=== PATIENT | male | born 1955 | race Caucasian/White ===

== ENCOUNTER 2021-06-12 12:57 | Inpatient (IN) | payer OTHER ==
[2021-06-12] MEDS ORDERED: IBUPROFEN 400 MG TABLET (FP) PO PRN (14:23)
[2021-06-12] MEDS ORDERED: MAG HYDROX/AL HYDROX/SIMETH 30 ML UNIT-DOSE CUP PO PRN (14:23)
[2021-06-12] MEDS ORDERED: ONDANSETRON *ODT* 4 MG TABLET SL PRN (14:23)
[2021-06-12] MEDS ORDERED: NICOTINE 10 MG CARTRIDGE (INHALER) IH PRN (14:23)
[2021-06-12] MEDS ORDERED: methaDONE HCL 10 MG TABLET (FOR DETOX USE ONLY) PO ONE (14:23)
[2021-06-12] MEDS ORDERED: BISMUTH SUBSALICYLATE 262 MG/15 ML BTL PO PRN (14:23)
[2021-06-12] MEDS ORDERED: cloNIDine HCL 0.1 MG TABLET PO PRN (14:23)
[2021-06-12] MEDS ORDERED: MAGNESIUM CITRATE 300 ML BOTTLE PO PRN (14:23)
[2021-06-12] MEDS ORDERED: MENTHOL/PHENOL 1 EACH UD MM PRN (14:23)
[2021-06-12] MEDS ORDERED: NICOTINE POLACRILEX 2 MG GUM BUC PRN (14:23)
[2021-06-12] MEDS ORDERED: MAGNESIUM HYDROX 2400MG/30ML ORAL SUSPENSION 30 ML CUP PO PRN (14:23)
[2021-06-12] MEDS ORDERED: NICOTINE 21 MG/24 HOURS TOPICAL PATCH TD PRN (14:23)
[2021-06-12] MEDS ORDERED: ACETAMINOPHEN 325 MG TABLET (FP) PO PRN ×2 (14:23)
[2021-06-12] MEDS ORDERED: methaDONE HCL 10 MG TABLET (FOR DETOX USE ONLY) ONE (15:17)
[2021-06-12] MEDS ORDERED: METHOCARBAMOL 500 MG TABLET ONE (15:17)
[2021-06-12] MEDS ORDERED: IBUPROFEN 400 MG TABLET (FP) PO ONE (15:18)
[2021-06-12] MEDS: METHOCARBAMOL 500 MG TABLET PO PRN ×2 (15:24→22:19)
[2021-06-12 15:27] VITALS: BMI 22.9
[2021-06-12] MEDS: hydrOXYzine PAMOATE 25 MG CAPSULE (FP) PO SCH ×2 (18:03→22:19)
[2021-06-12] MEDS: PRENATAL VITAMINS W/ FOLIC ACID TABLET (FP) PO SCH (18:03)
[2021-06-12] MEDS: MELATONIN 5 MG TABLETS PO SCH (22:19)
[2021-06-12] MEDS: THIAMINE HCL 100 MG TABLET (FP) PO SCH (22:19)
[2021-06-13] MEDS: hydrOXYzine PAMOATE 25 MG CAPSULE (FP) PO SCH ×5 (06:06→22:26)
[2021-06-13] MEDS ORDERED: methaDONE HCL 10 MG TABLET (FOR DETOX USE ONLY) ONE (08:18)
[2021-06-13] MEDS: PRENATAL VITAMINS W/ FOLIC ACID TABLET (FP) PO SCH (10:22)
[2021-06-13 11:57] LABS: HEMATOCRIT 51.2 % (35.4-49); HEMOGLOBIN 17.3 GM/dL (11.7-16.9); MCH 30.9 pg (25.7-33.7); MCHC 33.8 g/dl (32.0-35.9); MEAN CELL VOLUME 91.5 fl (80-96); MEAN PLT VOLUME 8.7 fl (7.5-11.1); PLATELET COUNT 248 10^3/uL (134-434); RDW 14.1 % (11.9-15.9); WHITE BLOOD COUNT 7.9 K/mm3 (4.0-10.0)
[2021-06-13 12:26] LABS: CALCIUM 8.4 mg/dL (8.5-10.1)
[2021-06-13 12:27] LABS: ALBUMIN 3.1 g/dl (3.4-5.0); BLOOD UREA NITROGEN 12.4 mg/dL (7-18)
[2021-06-13 12:30] LABS: CREATININE 0.8 mg/dL (0.55-1.3)
[2021-06-13 12:32] LABS: BILIRUBIN,TOTAL 1.2 mg/dL (0.2-1); TOT PROT 6.4 g/dl (6.4-8.2)
[2021-06-13] MEDS: THIAMINE HCL 100 MG TABLET (FP) PO SCH (22:26)
[2021-06-13] MEDS: MELATONIN 5 MG TABLETS PO SCH (22:26)
[2021-06-14] MEDS: hydrOXYzine PAMOATE 25 MG CAPSULE (FP) PO SCH ×5 (05:37→22:24)
[2021-06-14] MEDS ORDERED: methaDONE HCL 10 MG TABLET (FOR DETOX USE ONLY) PO ONE (10:00)
[2021-06-14] MEDS: PRENATAL VITAMINS W/ FOLIC ACID TABLET (FP) PO SCH (10:17)
[2021-06-14] MEDS: METHOCARBAMOL 500 MG TABLET PO PRN (13:16)
[2021-06-14] MEDS: MELATONIN 5 MG TABLETS PO SCH (22:24)
[2021-06-14] MEDS: THIAMINE HCL 100 MG TABLET (FP) PO SCH (22:24)
[2021-06-15] MEDS: hydrOXYzine PAMOATE 25 MG CAPSULE (FP) PO SCH (05:25)
[2021-06-15 06:38] VITALS: BP 103/63; PULSE 59; TEMP 98
[2021-06-15] MEDS ORDERED: hydrOXYzine PAMOATE 25 MG CAPSULE (FP) PO PRN (07:22)
[2021-06-16] MEDS ORDERED: methaDONE HCL 10 MG TABLET (FOR DETOX USE ONLY) PO ONE (10:00)
== END 2021-06-15 09:48 | disposition left against medical advice (07) | DRG 770 ==
LOC: YASAS 12:57 → Y3N 15:15
PROVIDERS: ADMIT Allergy & Immunology; ATTEND Allergy & Immunology
PROC: HZ2ZZZZ Detoxification Services for Substance Abuse Treatment (ICD-10-PCS; principal; 2021-06-12)
DX: F11.23 Opioid dependence with withdrawal (principal); F14.10 Cocaine abuse, uncomplicated; F12.10 Cannabis abuse, uncomplicated; F17.210 Nicotine dependence, cigarettes, uncomplicated; G89.29 Other chronic pain
CPT/HCPCS: 36415; 80053; 85027; 86780; C9803; J0735; U0003; U0005

== ENCOUNTER 2022-11-20 17:12 | Inpatient (IN) | payer OTHER ==
[2022-11-20 18:22] VITALS: BMI 21.5
[2022-11-20] MEDS ORDERED: ACETAMINOPHEN 325 MG TABLET (FP) PO PRN (20:21)
[2022-11-20] MEDS ORDERED: LOPERAMIDE HCL 2 MG CAPSULE PO PRN (20:21)
[2022-11-20] MEDS ORDERED: guaiFENesin 600 MG TABLET.ER (FP) PO PRN (20:21)
[2022-11-20] MEDS ORDERED: NICOTINE POLACRILEX 2 MG GUM BUC PRN (20:21)
[2022-11-20] MEDS ORDERED: BISMUTH SUBSALICYLATE 524 MG/30 ML PO PRN (20:21)
[2022-11-20] MEDS ORDERED: MAG HYDROX/AL HYDROX/SIMETH 30 ML UNIT-DOSE CUP PO PRN (20:21)
[2022-11-20] MEDS ORDERED: NALOXONE HCL 0.4 MG/ML VIAL IM PRN (20:21)
[2022-11-20] MEDS ORDERED: MAGNESIUM HYDROX 2400MG/30ML ORAL SUSPENSION 30 ML CUP PO PRN (20:21)
[2022-11-20] MEDS ORDERED: DICYCLOMINE HCL 10 MG CAPSULE PO PRN (20:21)
[2022-11-20] MEDS ORDERED: POLYETHYLENE GLYCOL (HEALTHYLAX) 3350 17 GM PACKET PO PRN (20:21)
[2022-11-20] MEDS ORDERED: NALOXONE HCL (KLOXXADO) 8 MG SPRAY NS PRN (20:21)
[2022-11-20] MEDS ORDERED: BENZOCAINE/MENTHOL (CHLORASEPTIC ) LOZENGE MM PRN (20:21)
[2022-11-20] MEDS ORDERED: IBUPROFEN 600 MG TABLET (FP) PO PRN (20:21)
[2022-11-20] MEDS ORDERED: BENZONATATE 200 MG CAPSULE PO PRN (20:21)
[2022-11-20] MEDS ORDERED: ONDANSETRON *ODT* 4 MG TABLET SL PRN (20:21)
[2022-11-20] MEDS ORDERED: hydrOXYzine PAMOATE 25 MG CAPSULE (FP) PO PRN (20:21)
[2022-11-20] MEDS ORDERED: IBUPROFEN 400 MG TABLET (FP) PO PRN (20:21)
[2022-11-21] MEDS: MELATONIN 5 MG TABLETS PO SCH ×2 (00:07→22:29)
[2022-11-21] MEDS: THIAMINE HCL 100 MG TABLET (FP) PO SCH ×2 (00:07→22:30)
[2022-11-21] MEDS ORDERED: methaDONE HCL 10 MG TABLET PO SCH (07:45)
[2022-11-21] MEDS ORDERED: methaDONE 80 MG, methaDONE 10 MG PO ONE (08:00)
[2022-11-21] MEDS ORDERED: diazePAM 5 MG TABLET PO PRN (10:10)
[2022-11-21] MEDS: PRENATAL VITAMINS W/ FOLIC ACID TABLET (FP) PO SCH (10:24)
[2022-11-21] MEDS: NICOTINE 21 MG/24 HOURS TOPICAL PATCH TD SCH (10:24)
[2022-11-21] MEDS: diazePAM 5 MG TABLET PO SCH ×3 (10:25→22:31)
[2022-11-21 11:09] LABS: HEMATOCRIT 47.3 % (35.4-49); HEMOGLOBIN 16.1 GM/dL (11.7-16.9); MCH 31.7 pg (25.7-33.7); MCHC 34.1 g/dl (32.0-35.9); PLATELET COUNT 203 10^3/uL (134-434); RBC 5.09 M/mm3 (4.00-5.60); WHITE BLOOD COUNT 7.3 K/mm3 (4.0-10.0)
[2022-11-21 11:18] LABS: BLOOD UREA NITROGEN 19.8 mg/dL (7-18)
[2022-11-21 11:19] LABS: BILIRUBIN,TOTAL 0.3 mg/dL (0.2-1); TOT PROT 6.1 g/dl (6.4-8.2)
[2022-11-21 11:20] LABS: CALCIUM 8.7 mg/dL (8.5-10.1)
[2022-11-21 11:21] LABS: CREATININE 0.9 mg/dL (0.55-1.3)
[2022-11-21] MEDS ORDERED: PRAZOSIN HCL 2 MG CAPSULE PO SCH (22:00)
[2022-11-22] MEDS: methaDONE 80 MG, methaDONE 10 MG PO SCH (05:57)
[2022-11-22] MEDS: diazePAM 5 MG TABLET PO SCH ×4 (05:58→22:14)
[2022-11-22] MEDS ORDERED: FLUoxetine HCL 20 MG CAPSULE PO SCH (10:00)
[2022-11-22] MEDS: PRENATAL VITAMINS W/ FOLIC ACID TABLET (FP) PO SCH (10:44)
[2022-11-22] MEDS: NICOTINE 21 MG/24 HOURS TOPICAL PATCH TD SCH (10:45)
[2022-11-22] MEDS: MELATONIN 5 MG TABLETS PO SCH (22:13)
[2022-11-22] MEDS: THIAMINE HCL 100 MG TABLET (FP) PO SCH (22:13)
[2022-11-23] MEDS: methaDONE 80 MG, methaDONE 10 MG PO SCH (05:57)
[2022-11-23] MEDS ORDERED: diazePAM 5 MG TABLET PO SCH (06:00)
[2022-11-23 09:59] VITALS: BP 123/73; PULSE 86; RESP 18; TEMP 98.8
[2022-11-23] MEDS: PRENATAL VITAMINS W/ FOLIC ACID TABLET (FP) PO SCH (10:04)
[2022-11-23] MEDS: NICOTINE 21 MG/24 HOURS TOPICAL PATCH TD SCH (10:04)
[2022-11-24] MEDS ORDERED: diazePAM 5 MG TABLET PO SCH (06:00)
[2022-11-25] MEDS ORDERED: diazePAM 5 MG TABLET PO ONE (06:00)
== END 2022-11-23 10:35 | disposition left against medical advice (07) | DRG 894 ==
LOC: YASAS 17:12 → Y3N 21:17
PROVIDERS: ADMIT Allergy & Immunology; ATTEND Surgery
PROC: HZ2ZZZZ Detoxification Services for Substance Abuse Treatment (ICD-10-PCS; principal; 2022-11-20)
DX: F13.230 Sedative, hypnotic or anxiolytic dependence with withdrawal, uncomplicated (principal); F11.20 Opioid dependence, uncomplicated; F14.20 Cocaine dependence, uncomplicated; F12.20 Cannabis dependence, uncomplicated; F17.210 Nicotine dependence, cigarettes, uncomplicated; F19.24 Other psychoactive substance dependence with psychoactive substance-induced mood disorder; I10 Essential (primary) hypertension; M54.50 Low back pain, unspecified; G89.29 Other chronic pain
CPT/HCPCS: 36415; 80053; 85027; 86780; C9803-CS; U0003; U0005

== ENCOUNTER 2024-05-20 08:50 | Inpatient (IN) | payer OTHER ==
[2024-05-20 09:21] VITALS: BMI 23.3
[2024-05-20] MEDS ORDERED: MAGNESIUM HYDROX 2400MG/30ML ORAL SUSPENSION 30 ML CUP PO PRN (10:05)
[2024-05-20] MEDS ORDERED: NICOTINE POLACRILEX 2 MG LOZENGE BC PRN (10:05)
[2024-05-20] MEDS ORDERED: POLYETHYLENE GLYCOL (HEALTHYLAX) 3350 17 GM PACKET PO PRN (10:05)
[2024-05-20] MEDS ORDERED: guaiFENesin 600 MG TABLET.ER (FP) PO PRN (10:05)
[2024-05-20] MEDS ORDERED: NALOXONE (NARCAN) HCL 4 MG/0.1 ML SPRAY NS PRN (10:05)
[2024-05-20] MEDS ORDERED: BISMUTH SUBSALICYLATE 524 MG/30 ML PO PRN (10:05)
[2024-05-20] MEDS ORDERED: ACETAMINOPHEN 325 MG TABLET (FP) PO PRN (10:05)
[2024-05-20] MEDS ORDERED: LOPERAMIDE HCL 2 MG CAPSULE PO PRN (10:05)
[2024-05-20] MEDS ORDERED: BENZOCAINE/MENTHOL (CHLORASEPTIC ) LOZENGE MM PRN (10:05)
[2024-05-20] MEDS ORDERED: BENZONATATE 200 MG CAPSULE PO PRN (10:05)
[2024-05-20] MEDS ORDERED: NALOXONE HCL 0.4 MG/ML VIAL IM PRN (10:05)
[2024-05-20] MEDS ORDERED: DICYCLOMINE HCL 10 MG CAPSULE PO PRN (10:05)
[2024-05-20] MEDS ORDERED: IBUPROFEN 400 MG TABLET (FP) PO PRN (10:05)
[2024-05-20] MEDS ORDERED: HYDROCORTISONE 1% TOPICAL CREAM 30 GM TUBE TP PRN (10:10)
[2024-05-20] MEDS: PRENATAL VITAMINS W/ FOLIC ACID TABLET (FP) PO SCH (11:59)
[2024-05-20] MEDS: hydrOXYzine PAMOATE 25 MG CAPSULE (FP) PO PRN (18:57)
[2024-05-20] MEDS: THIAMINE 100 MG TABLET PO SCH (21:25)
[2024-05-20] MEDS: METHOCARBAMOL 500 MG TABLET PO PRN (21:25)
[2024-05-20] MEDS: MELATONIN 5 MG TABLETS PO SCH (21:25)
[2024-05-21] MEDS: ONDANSETRON *ODT* 4 MG TABLET SL PRN (05:10)
[2024-05-21] MEDS: IBUPROFEN 600 MG TABLET (FP) PO PRN (05:25)
[2024-05-21] MEDS: LORazepam 2 MG TABLET PO SCH (06:55)
[2024-05-21] MEDS: LORazepam 1 MG TABLET PO PRN (06:57)
[2024-05-21] MEDS: methaDONE HCL 10 MG TABLET PO SCH (08:52)
[2024-05-21 10:23] LABS: HEMATOCRIT 46.4 % (35.4-49); HEMOGLOBIN 15.5 GM/dL (11.7-16.9); MCH 31.2 pg (25.7-33.7); MCHC 33.5 g/dl (32.0-35.9); MEAN CELL VOLUME 93.1 fl (80-96); MEAN PLT VOLUME 9.2 fl (7.5-11.1); PLATELET COUNT 209 10^3/uL (134-434); RBC 4.98 M/mm3 (4.00-5.60); RDW 13.9 % (11.9-15.9); WHITE BLOOD COUNT 6.8 K/mm3 (4.0-10.0)
[2024-05-21 10:29] LABS: ALBUMIN 3.5 g/dl (3.4-5.0); BLOOD UREA NITROGEN 16.8 mg/dL (7-18)
[2024-05-21 10:31] LABS: CALCIUM 9.3 mg/dL (8.5-10.1)
[2024-05-21 10:35] LABS: CREATININE 0.9 mg/dL (0.55-1.3)
[2024-05-21 10:37] LABS: BILIRUBIN,TOTAL 0.4 mg/dL (0.2-1); TOT PROT 6.6 g/dl (6.4-8.2)
[2024-05-21] MEDS: LACTULOSE 20 GM/30 ML UDC (FOR ORAL USE ONLY) PO SCH (14:47)
[2024-05-22] MEDS: LORazepam 1 MG TABLET PO SCH (05:40)
[2024-05-22] MEDS: MAG HYDROX/AL HYDROX/SIMETH 30 ML UNIT-DOSE CUP PO PRN (09:59)
[2024-05-23] MEDS ORDERED: LORazepam 0.5 MG TABLET PO PRN
[2024-05-23] MEDS: LORazepam 0.5 MG TABLET PO SCH (05:51)
[2024-05-23] MEDS: PANTOPRAZOLE 40 MG TABLET PO SCH (16:46)
[2024-05-24] MEDS: LORazepam 0.5 MG TABLET PO ONE (05:49)
[2024-05-24 08:46] VITALS: BP 135/77; PULSE 61; RESP 18; TEMP 98.3
== END 2024-05-24 10:43 | disposition home or self-care (01) | DRG 897 ==
LOC: YASAS 08:50 → Y3N 12:05
PROVIDERS: ADMIT Allergy & Immunology; ATTEND Surgery
PROC: HZ2ZZZZ Detoxification Services for Substance Abuse Treatment (ICD-10-PCS; principal; 2024-05-20)
DX: F13.230 Sedative, hypnotic or anxiolytic dependence with withdrawal, uncomplicated (principal); F11.20 Opioid dependence, uncomplicated; F14.20 Cocaine dependence, uncomplicated; Z59.00 Homelessness unspecified; F12.20 Cannabis dependence, uncomplicated; F17.210 Nicotine dependence, cigarettes, uncomplicated; F19.24 Other psychoactive substance dependence with psychoactive substance-induced mood disorder; G47.00 Insomnia, unspecified; I10 Essential (primary) hypertension; M54.50 Low back pain, unspecified; G89.29 Other chronic pain; Z56.0 Unemployment, unspecified
CPT/HCPCS: 36415; 80053; 80305; 80307; 82140; 85027; 86780; 86803; 87522; 93005; 93010; Q0162